=== PATIENT | female | born 1955 | race Caucasian/White ===

== ENCOUNTER → 2016-12-31 | Outpatient (CLI) | payer OTHER ==
[2016-12-31 13:17] LABS: ALT 36 U/L (9-52); AST 23 U/L (14-36); Alkaline Phosphatase 110 U/L (38-126); Anion Gap 13 mmol/L; Blood Urea Nitrogen 16 mg/dL (7-17); Calcium 9.5 mg/dL (8.4-10.2); Carbon Dioxide 25 mmol/L (22-30); Chloride 104 mmol/L (98-107); Glucose 217 mg/dL (74-99); Non-African American GFR(MDRD) 57 (>60 ml/min/1.73 sqM); Potassium 4.7 mmol/L (3.5-5.1); Sodium 142 mmol/L (137-145); Total Bilirubin 0.5 mg/dL (0.2-1.3); Total Protein 7.1 g/dL (6.3-8.2)
== END | disposition home or self-care (01) ==
LOC: LABWHC1 12:13
PROVIDERS: ATTEND Internal Medicine Endocrinology, Diabetes & Metabolism
DX: E11.65 Type 2 diabetes mellitus with hyperglycemia (principal); E83.52 Hypercalcemia
CPT/HCPCS: 36415; 80053; 82306; 83970

== ENCOUNTER → 2019-01-18 | Outpatient (CLI) | payer OTHER ==
--- NOTE | 2019-01-19 14:14 | BD ---
EXAMINATION TYPE: Axial Bone Density DATE OF EXAM: 01/18/2019 COMPARISON: 2016 CLINICAL HISTORY: screening Height: 5'7 Weight: 264 FRAX RISK QUESTIONS: Family History (Parent hip fracture): y Secondary Osteoporosis: 3. Menopause before 45: y RISK FACTORS HISTORY OF: Active: Postmenopausal woman: y Frequent falls: Poor Health: MEDICATIONS: Thyroid Medications: Which medication: Synthroid How Lon years Additional Medications: insulin pump ,blood pressure, cholesterol, Additional History: glucose monitor not able to remove l spine not done because of device on abd , left forearm replaced l spine EXAM MEASUREMENTS: Bone mineral densitometry was performed using the [employer] System. Bone mineral density about the R hip (g/cm2): 0.893 Bone mineral density about the L hip (g/cm2): 0.854 T Score values are as follows: -----R Neck: -1.0 -----L Neck: -1.3 -----R Total: -0.2 -----L Total: -0.5 Bone mineral density has: Decreased -1.7% since study of: 02/01/2016 Bone mineral density about the L Wrist (g/cm2): 0.678 T Score values are as follows: -----Dist. R+U: -0.6 -----Prox. R+U: 0.4 -----Radius total: 0.1 IMPRESSION: Osteopenia (T Score between -2.5 and -1). There is slightly increased risk of fracture and the patient may be considered for treatment. Re-Screen 2-5 years. NOTE: T-SCORE=SD OF THE YOUNG ADULT MEAN.
--- NOTE | 2019-01-20 10:00 | MM ---
Reason for exam: screening (asymptomatic). Last mammogram was performed 2 years and 11 months ago. History: Patient is postmenopausal. Family history of breast cancer in aunt. Physical Findings: A clinical breast exam by your physician is recommended on an annual basis and results should be correlated with mammographic findings. MG Screening Mammo w CAD Bilateral CC and MLO view(s) were taken. Prior study comparison: February 01, 2016, bilateral MG screening mammo w CAD. March 08, 2014, bilateral digital screening mammo w/CAD. No significant changes when compared with prior studies. ASSESSMENT: Benign, BI-RAD 2 RECOMMENDATION: Routine screening mammogram of both breasts in 1 year.
== END | disposition home or self-care (01) ==
LOC: RADMAMWWP 15:06
PROVIDERS: ATTEND Family Medicine
DX: Z12.31 Encounter for screening mammogram for malignant neoplasm of breast (principal); M85.80 Other specified disorders of bone density and structure, unspecified site
CPT/HCPCS: 77067; 77080

== ENCOUNTER → 2019-12-08 | Outpatient (CLI) | payer OTHER ==
[2019-12-08 16:59] LABS: Basophils # (A) 0.1 k/uL (0-0.2); Basophils % (A) 2 %; Eosinophils # (A) 0.4 k/uL (0-0.7); Eosinophils % (A) 6 %; HCT 42.1 % (34.0-46.0); Hypochromasia Slight; Lymphocytes # (A) 1.5 k/uL (1.0-4.8); Lymphocytes % (A) 22 %; MCH 27.8 pg (25.0-35.0); MCHC 30.8 g/dL (31.0-37.0); MCV 90.5 fL (80.0-100.0); Monocytes # (A) 0.5 k/uL (0-1.0); Monocytes % (A) 8 %; Neutrophils # (A) 4.2 k/uL (1.3-7.7); Neutrophils % (A) 59 %; Platelet Count 227 k/uL (150-450); RBC 4.65 m/uL (3.80-5.40); RDW 13.8 % (11.5-15.5)
[2019-12-08 17:40] LABS: HGB 12.9 gm/dL (11.4-16.0)
== END | disposition home or self-care (01) ==
LOC: LABPAT 16:24
PROVIDERS: ATTEND Obstetrics & Gynecology
DX: Z01.812 Encounter for preprocedural laboratory examination (principal)
CPT/HCPCS: 85025

== ENCOUNTER 2019-12-13 06:17 | Day surgery (SDC) | payer OTHER ==
[2019-12-09 12:25] VITALS: BMI 42.0
--- NOTE | 2019-12-12 21:09 | P.HPOB ---
History of Present Illness H&P Date: 12/12/19 Chief Complaint: Postmenopausal bleeding, endometrial thickening This is a 64 y.o. female, 2, para 2, who presents for dilatation and curettage with hysteroscopy secondary to postmenopausal bleeding and endometrial thickening. She has been experiencing bleeding for the last 13 months and it has been occuring almost daily. Last week she had more period-like flow for 3-4 days. She had a pelvic US a year ago that showed a uterus measuring 6.6 x 4.1 x 4.1 cm and endometrial thickening of 1.7 cm with heterogenoous echo and associated abnormal blood flow. There was also a small cystic area measuring 0.6 cm. She was awaiting cardiology stress test to get surgical clearance and then lost her insurance. She recently got new insurance and completed her stress test. Dr. Roe and Dr. Moncada have both cleared her for surgery now. OB Hx: . History of 2 vaginal deliveries. 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 Onset of menses was age 13 and menopause was age 41. Social Hx: . Homemaker. Review of Systems Constitutional: Denies chills, Denies fever Eyes: denies blurred vision, denies pain Ears, nose, mouth and throat: Denies headache, Denies sore throat Cardiovascular: Denies chest pain, Denies shortness of breath Respiratory: Denies cough Gastrointestinal: Denies abdominal pain, Denies diarrhea, Denies nausea, Denies vomiting Genitourinary: Reports abnormal vaginal bleeding, Denies pelvic pain Menstruation: Reports postmenopausal Musculoskeletal: Denies myalgias Integumentary: Denies pruritus, Denies rash Neurological: Denies numbness, Denies weakness Psychiatric: Reports anxiety, Reports depression Past Medical History Past Medical History: Diabetes Mellitus, Hyperlipidemia, Hypertension, Myocardial Infarction ([place]), Thyroid Disorder Additional Past Medical History / Comment(s): PMB Last Myocardial Infarction Date:: 2002 History of Any Multi-Drug Resistant Organisms: None Reported Past Surgical History: Heart Catheterization With Stent Additional Past Surgical History / Comment(s): HEART CATH W/STENT X 2-TOTAL 5 STENTS. COLONOSCOPY Past Anesthesia/Blood Transfusion Reactions: No Reported Reaction Date of Last Stent Placement:: 12/2003 Past Psychological History: Anxiety, Depression Smoking Status: Former smoker Past Alcohol Use History: Occasional Past Drug Use History: None Reported - Past Family History Mother Family Medical History: CVA/TIA, Diabetes Mellitus Medications and Allergies Home Medications Medication Instructions Recorded Confirmed Type Aspirin [Adult Low Dose Aspirin EC] 81 mg PO DAILY 12/09/19 12/09/19 History Calcium Carbonate/Vitamin D3 1 each PO BID 12/09/19 12/09/19 History [Caltrate 600 Plus D3 Tablet] Citalopram Hydrobromide [CeleXA] 40 mg PO DAILY 12/09/19 12/09/19 History Enalapril [Vasotec] 5 mg PO DAILY 12/09/19 12/09/19 History Ezetimibe/Simvastatin [Vytorin 1 tab PO HS 12/09/19 12/09/19 History 10-40 mg] Insulin Aspart (For Pump) [NovoLOG 0.01 unit SQ-PUMP CONTINUOUS 12/09/19 12/09/19 History (For Pump)] Levothyroxine Sodium [Synthroid] 25 mcg PO DAILY 12/09/19 12/09/19 History Multivitamins, Thera [Multivitamin 1 tab PO DAILY 12/09/19 12/09/19 History (formulary)] metFORMIN HCL 1,000 mg PO BID 12/09/19 12/09/19 History Metoprolol Tartrate [Lopressor] 50 mg PO BID 12/12/19 12/12/19 History Risedronate Sodium 150 mg PO 12/12/19 History Allergies Allergy/AdvReac Type Severity Reaction Status Date / Time No Known Allergies Allergy Verified 12/09/19 11:32 Exam Osteopathic Statement: *. No significant issues noted on an osteopathic structural exam other than those noted in the History and Physical/Consult. HEENT: within normal limits Heart: regular rate and rhythm Lungs: clear to auscultation bilaterally Abdomen: soft, non-tender Pelvic: uterus, anteverted, non-tender, with no adnexal masses or tenderness. Bloody discharge noted. Extremities: neg. Homans. Assessment and Plan (1) Postmenopausal bleeding Current Visit: No Status: Acute Code(s): N95.0 - POSTMENOPAUSAL BLEEDING SNOMED Code(s): 31244864 (2) Endometrial thickening on ultrasound Current Visit: No Status: Acute Code(s): R93.89 - ABNORMAL FINDINGS ON DX IMAGING OF OTH BODY STRUCTURES SNOMED Code(s): 099209212 Plan: Proceed with dilatation and curettage with hysteroscopy. I have discussed the risks, benefits, and alternative therapies for the above- mentioned procedure and for both sedation/anesthesia as well as necessary blood products administration, if indicated, as they pertain to this patient. The patient has indicated her understanding and acceptance of the risks and procedures discussed.
[~2019-12-13 06:17] MED LIST: HYDROmorphone 0.5 MG/0.5 ML SYRINGE IVP PRN; LACTATED RINGERS 1,000 ML IV SCH; LIDOCAINE 1% 20 ML VIAL (10MG/ML) FOR IV START INTRADERMA PRN; MIDAZOLAM 2 MG/2 ML VIAL IV PRN; ONDANSETRON 4 MG/2 ML VIAL IVP ONE; Pre Op ABX Message 1 EACH MISC MISCELLANE ONE; SCOPOLAMINE 1.5MG/72HR PATCH TRANSDERM ONE
[2019-12-13] MEDS: DEXAMETHASONE SOD PHOSPHATE 10 MG/ML 1 ML VIAL IV ONE ×2 (06:46→07:14)
[2019-12-13 06:50] LABS: Glucose,Whole Blood 184 mg/dL (75-99)
[2019-12-13] MEDS ORDERED: MIDAZOLAM 2 MG/2 ML VIAL ONE (07:31)
[2019-12-13] MEDS ORDERED: PROPOFOL 10 MG/ML 20 ML VIAL IV ONE (07:31)
[2019-12-13] MEDS ORDERED: fentaNYL (PF) 50 MCG/ML 2 ML AMP ONE (07:31)
[2019-12-13] MEDS ORDERED: LIDOCAINE 1% INJ 10MG/ML (20 ML MDV) ONE (07:31)
--- NOTE | 2019-12-13 08:06 | P.OP ---
Date of Procedure: 12/13/19 Preoperative Diagnosis: Postmenopausal bleeding Endometrial thickening Postoperative Diagnosis: Same Procedure(s) Performed: Dilation and curettage with hysteroscopy Anesthesia: other (LMA general) Surgeon: Sachi Neves Estimated Blood Loss (ml): 5 Pathology: other (Endometrial curettings) Condition: stable Disposition: same day Indications for Procedure: This is a 64 y.o. female, 2, para 2, who presents for dilatation and curettage with hysteroscopy secondary to postmenopausal bleeding and endometrial thickening. She has been experiencing bleeding for the last 13 months and it has been occuring almost daily. Last week she had more period-like flow for 3-4 days. She had a pelvic US a year ago that showed a uterus measuring 6.6 x 4.1 x 4.1 cm and endometrial thickening of 1.7 cm with heterogenoous echo and associated abnormal blood flow. There was also a small cystic area measuring 0.6 cm. She was awaiting cardiology stress test to get surgical clearance and then lost her insurance. She recently got new insurance and completed her stress test. Dr. Roe and Dr. Moncada have both cleared her for surgery now. Operative Findings: Uterus is sounded to 8 cm and found to be anteverted with no adnexal masses palpated. Upon hysteroscopy, a large amount of polypoid type tissue is visualized. Endometrial thickening is noted. A large amount of endometrial curettings are obtained. Description of Procedure: Patient is taken to the operating room she is placed in the dorsal lithotomy position. She is prepped and draped in the normal sterile fashion. Her bladder is drained with a catheter and then removed. Examination is performed under anesthesia. Uterus is found to be anteverted, with no adnexal masses palpated. Next a weighted speculum was placed in the patient's vagina and a right angle retractor was used to visualize the cervix. There was noted to be a grade 1-2 cystocele noted. Single-tooth tenaculum was used to grasp the anterior lip of the cervix. Cervical os is gently dilated with Jackson dilator and then uterus is sounded to 8 cm. Cervix is sounded further and then a hysteroscopy was performed using normal saline. The above-noted findings were made and pictures are taken. Hysteroscope was removed and cervix is gently dilated further. A polyp forceps is introduced and a large amount of polypoid type tissue is obtained. Next a medium-size sharp curet was introduced and sharp curettage was performed until a gritty texture is noted. A large amount of tissue is obtained. X the specimen is removed from the field pathology labeled endometrial curettings. The single-tooth tenaculum is removed from the cervix. Rupture is applied with a ring forcep. Once the ring forcep is removed no active bleeding is noted. All instruments are removed from the vagina. All sponge and needle counts are correct. Patient is then taken to recovery room in stable condition.
[2019-12-13 08:22] VITALS: TEMP 99.9
[2019-12-13 08:28] LABS: Glucose,Whole Blood 168 mg/dL (75-99)
[2019-12-13] MEDS ORDERED: SODIUM CHLORIDE 0.9% 1,000 ML IV ONE (08:36)
[2019-12-13 09:04] VITALS: RESP 16
[2019-12-13 09:19] VITALS: BP 155/82; PULSE 68
== END 2019-12-13 09:27 | disposition home or self-care (01) ==
LOC: OR 06:17
PROVIDERS: ATTEND Obstetrics & Gynecology
DX: C54.1 Malignant neoplasm of endometrium (principal); N81.10 Cystocele, unspecified; I25.10 Atherosclerotic heart disease of native coronary artery without angina pectoris; I10 Essential (primary) hypertension; E11.9 Type 2 diabetes mellitus without complications; I25.2 Old myocardial infarction; E07.9 Disorder of thyroid, unspecified; F41.9 Anxiety disorder, unspecified; F32.9 Major depressive disorder, single episode, unspecified; E78.5 Hyperlipidemia, unspecified; M85.80 Other specified disorders of bone density and structure, unspecified site; E66.01 Morbid (severe) obesity due to excess calories; Z95.5 Presence of coronary angioplasty implant and graft; Z79.82 Long term (current) use of aspirin; Z79.890 Hormone replacement therapy; Z79.4 Long term (current) use of insulin; Z96.41 Presence of insulin pump (external) (internal); Z79.899 Other long term (current) drug therapy; Z68.41 Body mass index [BMI] 40.0-44.9, adult; Z87.891 Personal history of nicotine dependence; Z83.3 Family history of diabetes mellitus; Z82.3 Family history of stroke
CPT/HCPCS: 58558; 88305; J2250; J1100; J2405; J2001; J3010; J2704

== ENCOUNTER → 2020-01-03 | Outpatient (CLI) | payer OTHER ==
--- NOTE | 2020-01-03 16:49 | XR ---
EXAMINATION TYPE: XR chest 2V DATE OF EXAM: 01/03/2020 COMPARISON: None HISTORY: 64-year-old female uterine cancer, M50.0 TECHNIQUE: Frontal and lateral views FINDINGS: The cardiomediastinal silhouette, aorta, and pulmonary vasculature are within normal limits. 2 nodule s left upper and left lower lung measuring up to 2.2 cm. Otherwise, the lungs and pleural spaces are clear. IMPRESSION: 2 metastatic nodules on the left measuring up to 2.2 cm not excluded.
--- NOTE | 2020-01-04 08:10 | CT ---
EXAMINATION TYPE: CT ChestAbdPelvis w con DATE OF EXAM: 01/03/2020 COMPARISON: None HISTORY: ovarian ca F/U CT DLP: 2690 mGycm CONTRAST: CT scan of the chest, abdomen and pelvis is performed with Oral Contrast and with IV Contrast, patien t injected with 100 mL of Isovue 300. CT Chest: LUNGS: 2.2 cm left lower lobe pulmonary nodule is solid in appearance. Additional 2 cm left upper lob e pulmonary nodules also solid in appearance. There is a third left upper lobe pulmonary nodule 2 cm. No additional nodules identified with certainty at this time. MEDIASTINUM: Thoracic aorta is of normal caliber. The heart is not enlarged. Subcentimeter mediasti nal lymph nodes noted. HILAR STRUCTURES: No evidence for mass. No hilar adenopathy is appreciated. OTHER: No significant abnormality. CONTRAST CT ABDOMEN AND PELVIS FINDINGS: LIVER/GB: No calcified gallstones. No space occupying hepatic lesion. Biliary tree is of normal ca liber. PANCREAS: No inflammation. No distinct mass. SPLEEN: No splenic enlargement. No lesion seen. ADRENALS: No nodule. No thickening. KIDNEYS/BLADDER: No hydronephrosis. No nephrolithiasis. No disctinct renal mass. BOWEL: Normal appendix. Normal bowel caliber. No inflammation. GENITAL ORGANS: The uterus is normal size. No evidence for adnexal or ovarian mass. LYMPH NODES: No greater than 1cm abdominal or pelvic lymph nodes are appreciated. AORTA: No significant abnormality. OSSEOUS STRUCTURES: No significant abnormality is seen. OTHER: No omental caking noted. Umbilical fat-containing hernia noted. IMPRESSION: 1. 3 solid pulmonary nodules are seen within the left lung suspicious for metastatic disease. 2. No evidence for ovarian or adnexal mass at this time. A Yellow level critical message alert has been initiated for Jorge Lindsey MD via the [employer] Critical Results System on 01/04/2020 8:07 AM. This message alert has been sent to Jorge meza MD via the preferences provided by the clinician for the receipt of Radiology Critical Findings. Message ID [id number].
== END | disposition home or self-care (01) ==
LOC: RADCTMAIN 13:54
PROVIDERS: ATTEND Obstetrics & Gynecology
DX: R91.8 Other nonspecific abnormal finding of lung field (principal); C54.1 Malignant neoplasm of endometrium
CPT/HCPCS: 82565; 84520; 71046; 71260; 74177; 36415; Q9967 ×2

== ENCOUNTER → 2020-01-13 | Outpatient (CLI) | payer OTHER ==
--- NOTE | 2020-01-17 15:44 | PE ---
Nuclear medicine PET/CT HISTORY: Endometrial carcinoma, initial Patient received 10.9 mCi F-18 FDG intravenously in delayed scanning was performed from skull base to the mid thighs. Localization and attenuation correction CT scan was performed. Correlation to prior chest abdomen and pelvis CT dated 01/03/2020 Neck and chest: Soft tissue mass in the left upper lobe does not show appreciable hypermetabolic upta ke and measures approximately 2 cm in transverse dimension, additional mass in the perihilar region o n the left is also stable in size, mass in the left lower lobe again noted, these lesions do not show associated hypermetabolic uptake however. There is no pleural pericardial effusion. No mediastinal, axillary, or hilar adenopathy. Coronary artery calcifications are present. There is a small hiatal he rnia. No supraclavicular adenopathy or cervical adenopathy. ABDOMEN: No adrenal mass or retroperitoneal adenopathy. There is an umbilical hernia containing fat. No evident liver mass or suspicious hypermetabolic uptake. Intense urine uptake may obscure detail. Uterus does not appear enlarged. Diverticular change noted i n the sigmoid colon. No evident lytic bone abnormality. No suspicious hypermetabolic uptake. IMPRESSION: Multiple left lung masses. No suspicious hypermetabolic uptake on PET/CT.
== END ==
LOC: RADPETMAIN 14:43
PROVIDERS: ATTEND Obstetrics & Gynecology
DX: C54.1 Malignant neoplasm of endometrium (principal); R91.8 Other nonspecific abnormal finding of lung field
CPT/HCPCS: 78815; A9552

== ENCOUNTER → 2020-05-24 | Outpatient (CLI) | payer OTHER ==
--- NOTE | 2020-05-25 11:17 | MM ---
Reason for exam: screening (asymptomatic). Last mammogram was performed 1 year and 4 months ago. History: Patient is postmenopausal and has history of other cancer at age 64. Family history of breast cancer in aunt. Physical Findings: A clinical breast exam by your physician is recommended on an annual basis and results should be correlated with mammographic findings. MG Screening Mammo w CAD Bilateral CC and MLO view(s) were taken. Prior study comparison: January 18, 2019, bilateral MG screening mammo w CAD. February 01, 2016, bilateral MG screening mammo w CAD. There are scattered fibroglandular densities. Stable benign calcifications. There is no discrete abnormality. No significant changes when compared with prior studies. ASSESSMENT: Benign, BI-RAD 2 RECOMMENDATION: Routine screening mammogram of both breasts in 1 year.
== END | disposition home or self-care (01) ==
LOC: RADMAMWWP 16:19
PROVIDERS: ATTEND Obstetrics & Gynecology
DX: Z12.31 Encounter for screening mammogram for malignant neoplasm of breast (principal)
CPT/HCPCS: 77067

== ENCOUNTER → 2021-03-27 | Outpatient (CLI) | payer MEDICARE ==
--- NOTE | 2021-03-28 06:41 | CT ---
EXAMINATION TYPE: CT abdomen pelvis w con DATE OF EXAM: 03/27/2021 HISTORY: Follow up for endometrial cancer. CT DLP: 2109.6mGycm Automated Exposure Control for Dose Reduction was Utilized. CONTRAST: CT scan of the abdomen and pelvis is performed with oral and with IV Contrast, patient injected with 80ml mL of Isovue 300. COMPARISON: PET CT January 13, 2020. CT January 03, 2020. FINDINGS: LUNG BASES: Persistent 2.1 x 2.0 cm posterior left basilar fairly low dense nodule noted ametabolic o n prior PET/CT stable in size. Partial visualization of right coronary artery calcification and/or st ent similar to prior studies. LIVER/GB: No significant abnormality is appreciated. PANCREAS: No significant abnormality is seen. SPLEEN: Small splenule in splenic hilum redemonstrated. ADRENALS: No significant abnormality is seen. KIDNEYS: No significant abnormality is seen. BOWEL: Oral contrast reaches level of distal transverse colon. No suspicious small or large bowel dil atation. Diverticula in the left and sigmoid colon. No CT evidence for acute diverticulitis UTERUS/ADNEXA: Uterus is now surgically absent. LYMPH NODES: No greater than 1cm abdominal or pelvic lymph nodes are appreciated. OSSEOUS STRUCTURES: Moderate disc space narrowing with vacuum disc phenomenon L4-L5 level. Moderate d isc space narrowing L5-S1 level. Multilevel facet arthropathy in the mid to lower lumbar spine OTHER: Moderate-sized umbilical hernia containing fat and tiny mesenteric vessels redemonstrated. IMPRESSION: Interval hysterectomy. No new or enlarging mass to suggest metastatic neoplasm. Stable 2. 1 cm low density metabolic left posterior lower lobe nodule favors benign etiology.
== END | disposition home or self-care (01) ==
LOC: RADCTMAIN 16:28
PROVIDERS: ATTEND Obstetrics & Gynecology
DX: C54.1 Malignant neoplasm of endometrium (principal)
CPT/HCPCS: 74177; Q9967